=== PATIENT | male | born 1990 | race Caucasian/White ===

== ENCOUNTER 2016-06-18 14:22 | Emergency (ER) | payer BC ==
[2016-06-18 14:56] VITALS: BP 140/66
[2016-06-18] MEDS ORDERED: Lidocaine 1% MPF* 2 ML VIAL ONE (16:41)
--- NOTE | 2016-06-18 16:45 | UC ---
Laceration HPI - HPI Summary HPI Summary: WAS SNOWBOARDING AT [employer] TODAY. HIT A FALLEN TREE HIDDEN UNDER SNOW AND FELL FORWARD. LANDED ON TREE BRANCH AND SUSTAINED THROUGH AND THROUGH LACERATION TO LOWER LIP. 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 LAST TETANUS 04/2013. NO HEAD INJURY OR LOC. WAS WEARING A HELMET. - History Of Current Complaint Chief Complaint: UCLaceration Stated Complaint: LIP LACERATION Time Seen by Provider: 06/18/16 16:33 Hx Obtained From: Patient Laceration Location: Face - LOWER LIP Mechanism Of Injury: Blunt Trauma Onset/Duration: Sudden Onset, Lasting Hours, Still Present Severity: Moderate Pain Intensity: 3 Pain Scale Used: 0-10 Numeric Aggravating Factors: Nothing - Allergies/Home Medications Allergies/Adverse Reactions: Allergies Allergy/AdvReac Type Severity Reaction Status Date / Time No Known Allergies Allergy Verified 06/18/16 14:57 PMH/Surg Hx/FS Hx/Imm Hx Previously Healthy: Yes Endocrine History Of: Denies: Diabetes Cardiovascular History Of: Denies: Hypertension, Pacemaker/ICD - Surgical History Surgical History: None - Family History Known Family History: Positive: Hypertension - Social History Alcohol Use: Occasionally Substance Use Type: None Smoking Status (MU): Never Smoked Tobacco - Immunization History Most Recent Tetanus Shot: 2013 Review of Systems Constitutional: Negative Skin: Other - LOWER LIP LACERATION Respiratory: Negative Cardiovascular: Negative Gastrointestinal: Negative All Other Systems Reviewed And Are Negative: Yes Physical Exam Triage Information Reviewed: Yes Appearance: Well-Appearing, No Pain Distress, Well-Nourished Vital Signs: Initial Vital Signs Temp 99.5 F 06/18/16 14:51 Pulse 85 06/18/16 14:51 Resp 18 06/18/16 14:51 BP 140/66 06/18/16 14:51 Pulse Ox 100 06/18/16 14:51 Vital Signs Reviewed: Yes Eyes: Positive: Conjunctiva Clear ENT: Positive: Hearing grossly normal Dental: Positive: Other: - LEFT LOWER GINGIVAL ABRASION. Negative: Percussion Tenderness @, Dental Fracture @ Neck: Positive: Supple Respiratory: Positive: No respiratory distress, No accessory muscle use Cardiovascular: Positive: Pulses Normal Abdomen Description: Positive: Soft Musculoskeletal: Positive: No Edema Neurological: Positive: Alert Psychological: Positive: Age Appropriate Behavior Skin: Positive: Other - LOWER LIP EDEMA AND THROUGH AND THROUGH STELLATE LACERATION AT VERMILION BORDER ABOUT 2CM Laceration Repair - Laceration Repair 1 Description: Stellate Laceration Size After Repair: Length (cm) - 2CM, Width (mm) - 0MM, Depth (mm) - THROUGH AND THROUGH Modified For Repair: No Type Injection: Local Anesthesia Used: 1.0% Lido Irrigation With Pressure Irrigation Device: Yes Closure Material: Sutures - 7 SIMPLE INTERRUPTED Closure Method: Single Layer Suture Of: Skin Suture Type: Other - 6-0 SURGIPRO Laceration Course/Dx - Differential Dx - Laceration/Wound Provider Diagnoses: LOWER LIP LACERATION REPAIR Discharge - Discharge Plan Condition: Stable Disposition: HOME Patient Education Materials: Facial Laceration (ED) Referrals: Sven Castillo MD [Primary Care Provider] - If Needed Additional Instructions: APPLY THIN LAYER ANTIBIOTIC OINTMENT UNDER BANDAGE FOR FIRST 2-3 DAYS ONLY. CHANGE BANDAGE DAILY AND NEEDED IF IT BECOMES SOILED OR WET. SEEK FOLLOW-UP IF YOU DEVELOP SPREADING REDNESS OF THE SKIN, PURULENT DRAINAGE, FEVER, INCREASED PAIN OR ANY OTHER CONCERNING SYMPTOMS. RETURN FOR SUTURE REMOVAL IN 7 DAYS
== END 2016-06-18 17:24 | disposition home or self-care (01) ==
LOC: UCEAST 14:22
DX: S01.511A Laceration without foreign body of lip, initial encounter (principal); W19.XXXA Unspecified fall, initial encounter; Y93.23 Activity, snow (alpine) (downhill) skiing, snowboarding, sledding, tobogganing and snow tubing; Y92.838 Other recreation area as the place of occurrence of the external cause
CPT/HCPCS: 12011; 99211; G0463

== ENCOUNTER 2016-06-26 12:39 | Emergency (ER) | payer BC ==
[2016-06-26 12:53] VITALS: BP 155/82
--- NOTE | 2016-06-26 14:58 | UC ---
HPI Wound/Suture Re-check - HPI Summary HPI Summary: SEVEN DAYS AGO HIT TREE WITH LOWER LIP AT [employer]. SEVEN SUTURES IN LOWER LIP. WOUND WELL APPROXIMATED NO REDNESS NO DISCHARGE. - History Of Current Complaint Chief Complaint: UCLaceration Stated Complaint: SUTURE REMOVAL Time Seen by Provider: 06/26/16 13:01 Hx Obtained From: Patient Onset/Duration: Sudden Onset, Lasting Days, Still Present Severity: Mild Pain Intensity: 0 Pain Scale Used: 0-10 Numeric - Allergies/Home Medications Allergies/Adverse Reactions: Allergies Allergy/AdvReac Type Severity Reaction Status Date / Time No Known Allergies Allergy Verified 06/18/16 14:57 PMH/Surg Hx/FS Hx/Imm Hx Previously Healthy: Yes Endocrine History Of: Denies: Diabetes Cardiovascular History Of: Denies: Hypertension, Pacemaker/ICD - Surgical History Surgical History: Yes Surgery Procedure, Year, and Place: Shoulder surgery 2014 - Family History Known Family History: Positive: Hypertension - Social History Occupation: Employed Full-time Lives: With Family Alcohol Use: Occasionally Substance Use Type: None Smoking Status (MU): Never Smoked Tobacco - Immunization History Most Recent Tetanus Shot: 2013 Review of Systems Constitutional: Negative Skin: Other - WELL APPROXIMATED HEALING WOUND IN INFERIOR EXTRNAL LIP Eyes: Negative ENT: Negative Respiratory: Negative Cardiovascular: Negative Gastrointestinal: Negative Genitourinary: Negative Motor: Negative Neurovascular: Negative Musculoskeletal: Negative Neurological: Negative Psychological: Negative All Other Systems Reviewed And Are Negative: Yes Physical Exam Triage Information Reviewed: Yes Appearance: Well-Appearing, No Pain Distress, Well-Nourished Vital Signs: Initial Vital Signs Pulse 80 06/26/16 12:50 Resp 16 06/26/16 12:50 BP 155/82 06/26/16 12:50 Pulse Ox 99 06/26/16 12:50 Vital Signs Reviewed: Yes Eye Exam: Normal ENT: Positive: Normal ENT inspection, Hearing grossly normal, TMs normal Dental Exam: Normal Neck exam: Normal Neck: Positive: Supple, Nontender, No Lymphadenopathy Respiratory Exam: Normal Respiratory: Positive: Chest non-tender, Lungs clear, Normal breath sounds, No respiratory distress, No accessory muscle use Cardiovascular Exam: Normal Cardiovascular: Positive: RRR, No Murmur, Pulses Normal Abdominal Exam: Normal Abdomen Description: Positive: Nontender, No Organomegaly Musculoskeletal Exam: Normal Musculoskeletal: Positive: Strength Intact, ROM Intact, No Edema Neurological Exam: Normal Psychological Exam: Normal Psychological: Positive: Normal Response To Family Skin: Positive: Other - SEVEN SUTURES REMOVED FROM INFERIOR LIP. WOUND HEALING AND WELL APPROXIMATED Course/Dx - Differential Dx - Laceration/Wound Differential Diagnoses: Cellulitis, Suture Removal Provider Diagnoses: SUTURE REMOVAL (#7 SUTURES) INFERIOR LIP. HEALING WOUND Discharge - Discharge Plan Condition: Stable Disposition: HOME Patient Education Materials: Stitches Removal (ED) Referrals: Sven Castillo MD [Primary Care Provider] -
== END 2016-06-26 13:29 | disposition home or self-care (01) ==
LOC: UCEAST 12:39
DX: Z48.02 Encounter for removal of sutures (principal)

== ENCOUNTER 2019-01-21 13:03 | Emergency (ER) | payer BC, OTHER ==
[2019-01-21 13:12] VITALS: BP 127/62
[2019-01-21] MEDS ORDERED: Tetan/Diph/Pertus SYR(Tdap)* 0.5 ML SYR(BOOSTRIX) use SYR contains LATEX IM ONE (13:34)
--- NOTE | 2019-01-21 13:36 | UC ---
Laceration HPI - HPI Summary HPI Summary: WHILE AT WORK TODAY A PIECE OF STUCCO FELL OFF A ROOF AND STRUCK HIS LEFT EAR. PATIENT SUSTAINED A LACERATION TO THE TASH HELIX. DENIES LOC. NO HEADACHE, NAUSEA, VISUAL DISTURBANCE, DIZZINESS. NO BLEEDING FROM THE EAR. NO CHANGE IN HEARING. LAST TETANUS APRIL 2013. 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 Laceration Location: Ear - LEFT Mechanism Of Injury: Blunt Trauma Onset/Duration: Lasting Minutes, Still Present Severity: Moderate Pain Intensity: 1 Pain Scale Used: 0-10 Numeric Aggravating Factors: Nothing - Allergies/Home Medications Allergies/Adverse Reactions: Allergies Allergy/AdvReac Type Severity Reaction Status Date / Time No Known Allergies Allergy Verified 01/21/19 13:11 PMH/Surg Hx/FS Hx/Imm Hx Previously Healthy: Yes - Surgical History Surgical History: Yes Surgery Procedure, Year, and Place: Shoulder surgery 2014 - Family History Known Family History: Positive: Hypertension - Social History Alcohol Use: Occasionally Substance Use Type: None Smoking Status (MU): Never Smoked Tobacco - Immunization History Most Recent Tetanus Shot: 2013 Review of Systems All Other Systems Reviewed And Are Negative: Yes Constitutional: Positive: Negative Skin: Positive: Other - LACERATION LEFT EAR Respiratory: Positive: Negative Cardiovascular: Positive: Negative Gastrointestinal: Positive: Negative Neurological: Positive: Negative Physical Exam Triage Information Reviewed: Yes Appearance: Well-Appearing, No Pain Distress, Well-Nourished Vital Signs: Initial Vital Signs Temp 97.5 F 01/21/19 13:07 Pulse 70 01/21/19 13:07 Resp 14 01/21/19 13:07 BP 127/62 01/21/19 13:07 Pulse Ox 99 01/21/19 13:07 Vital Signs Reviewed: Yes Eyes: Positive: Conjunctiva Clear ENT: Positive: Hearing grossly normal, Other - LEFT TASH OF HELIX LACERATED WITH CARTILAGINOUS EXPOSURE. CERUMEN IN EAC Neck: Positive: Supple Respiratory: Positive: No respiratory distress, No accessory muscle use Cardiovascular: Positive: Pulses Normal Abdomen Description: Positive: Soft Musculoskeletal: Positive: No Edema Neurological: Positive: Alert Psychological: Positive: Age Appropriate Behavior Skin: Positive: Rashes, Other - 1.5CM FLAP LIKE LACERATION LEFT TASH OF HELIX WITH EXPOSED CARTILAGE Laceration Course/Dx - Course/Dx Course Of Treatment: PATIENT WILL GO TO ENT DIRECTLY FROM HERE FOR REPAIR OF HIS LEFT EAR LACERATION. TDAP BOOSTED - Diagnosis Provider Diagnosis: Laceration of ear, external, left, Need for Tdap vaccination Discharge ED - Sign-Out/Discharge Documenting (check all that apply): Patient Departure All imaging exams completed and their final reports reviewed: No Studies - Discharge Plan Condition: Stable Disposition: HOME Patient Education Materials: Laceration (ED) Referrals: Airam Ferguson PA [Physician Vice President Of Software Engineering] - (GO DIRECTLY TO THE ENT OFFICE FROM HERE.) Additional Instructions: GO DIRECTLY TO THE ENT OFFICE FROM HERE. THEY ARE EXPECTING YOU. TETANUS IMMUNIZATION GIVEN (TDAP): You have been given an immunization against tetanus. Please record this in your records. In general, a booster is needed only once every 10 years. The tetanus shot protects against tetanus or "lockjaw," which is a complication of certain wound infections (the tetanus shot cannot protect against the actual infection). The immunization site may become warm and red due to local reaction. If this occurs, apply warm compresses and take aspirin or ibuprofen to reduce inflammation and discomfort. Return for evaluation if the reaction becomes severe. - Billing Disposition and Condition Condition: STABLE Disposition: Home
== END 2019-01-21 13:40 | disposition home or self-care (01) ==
LOC: UCEAST 13:03
DX: S01.312A Laceration without foreign body of left ear, initial encounter (principal); Z23 Encounter for immunization; W20.8XXA Other cause of strike by thrown, projected or falling object, initial encounter; Y92.9 Unspecified place or not applicable
CPT/HCPCS: 90471; 90715; 99211; G0010; G0463

== ENCOUNTER 2019-01-21 14:06 | Emergency (ER) | payer SELFPAY ==
[2019-01-21 14:46] VITALS: BP 121/69
[2019-01-21] MEDS ORDERED: Lidocaine 2% PF * 5 ML VIAL INJ ONE (14:48)
--- NOTE | 2019-01-21 14:48 | UC ---
Ear Complaint HPI - HPI Summary HPI Summary: 28 yo male presents with LEFT ear laceration. 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 He sustained a laceration here. He applied pressure to the area and came to . No LOC or head injury. No headache, dizziness, or hearing changes. Last tetanus was earlier today - History of Current Complaint Chief Complaint: UCLaceration Stated Complaint: EAR LAC Time Seen by Provider: 01/21/19 14:48 Hx Obtained From: Patient Onset/Duration: Sudden Onset Severity Initially: Moderate Severity Currently: Mild Pain Intensity: 1 Pain Scale Used: 0-10 Numeric - Allergies/Home Medications Allergies/Adverse Reactions: Allergies Allergy/AdvReac Type Severity Reaction Status Date / Time No Known Allergies Allergy Verified 01/21/19 13:11 PMH/Surg Hx/FS Hx/Imm Hx - Additional Past Medical History Additional PMH: None - Surgical History Surgical History: Yes Surgery Procedure, Year, and Place: Shoulder surgery 2014 - Family History Known Family History: Positive: Hypertension - Social History Occupation: Employed Full-time Lives: With Family Alcohol Use: Occasionally Substance Use Type: None Smoking Status (MU): Never Smoked Tobacco - Immunization History Most Recent Tetanus Shot: 2013 Review of Systems All Other Systems Reviewed And Are Negative: No Constitutional: Positive: Negative Skin: Positive: Other - Left ear laceration Respiratory: Positive: Negative Cardiovascular: Positive: Negative Neurovascular: Positive: Negative Neurological: Positive: Negative Psychological: Positive: Negative Physical Exam - Summary Physical Exam Summary: GENERAL: NAD. WDWN. No pain distress. SKIN: LEFT EAR: LEFT TASH OF HELIX LACERATED WITH CARTILAGINOUS EXPOSURE 6mm flap like laceration CHEST: No accessory muscle use. Breathing comfortably and in no distress. CV: Pulses intact. Cap refill <2seconds NEURO: Alert. PSYCH: Age appropriate behavior. Triage Information Reviewed: Yes Vital Signs: Initial Vital Signs Temp 98.5 F 01/21/19 14:44 Pulse 60 01/21/19 14:44 Resp 16 01/21/19 14:44 BP 121/69 01/21/19 14:44 Pulse Ox 100 01/21/19 14:44 Vital Signs Reviewed: Yes Procedures - Laceration/Wound Repair 1 Description: Irregular - flap-like Anesthesia: Local, 2.0% Irrigated w/ Saline (ccs): 100 Laceration/Wound Explored: clean Closure: Single Layer Suture Type: Prolene - 6-0 Number of Sutures: 4 Layer Closure?: No Ear Complaint Course/Dx - Course Course Of Treatment: The procedure was explained to the pt and all questions were answered. A time out was performed, witnessed, and signed. The area was irrigated with 100mL sterile saline. 0.5mL of 2% lidocaine without epi was administered and good anesthetization was achieved. In the usual sterile fashion, FOUR 6-0 prolene interrupted sutures were placed. Homeostasis achieved. Pt tolerated procedure well. - Differential Dx/Diagnosis Provider Diagnosis: Laceration of ear Discharge ED - Sign-Out/Discharge Documenting (check all that apply): Patient Departure All imaging exams completed and their final reports reviewed: No Studies - Discharge Plan Condition: Stable Disposition: HOME Patient Education Materials: Care For Your Stitches (ED), Laceration (ED) Referrals: No Primary Care Phys,NOPCP [Primary Care Provider] - Additional Instructions: 1) Please keep the area clean with soap and water daily 2) If you develop a fever, colored or thick discharge, increased pain or swelling - please call your PCP or return for a wound check. 3) Please return in 8-10 days to have your FOUR sutures removed. - Billing Disposition and Condition Condition: STABLE Disposition: Home
== END 2019-01-21 15:43 | disposition home or self-care (01) ==
LOC: UCEAST 14:06
DX: S01.312A Laceration without foreign body of left ear, initial encounter (principal); W20.8XXA Other cause of strike by thrown, projected or falling object, initial encounter; Y92.9 Unspecified place or not applicable; Y99.0 Civilian activity done for income or pay
CPT/HCPCS: 12011; 90471; 90715; 99211; G0010; G0463